=== PATIENT | female | born 1975 | race Two or more races ===

== ENCOUNTER 2017-04-09 14:02 | Day surgery (SDC) | payer SELFPAY ==
[~2017-04-09 14:02] MED LIST: Glycopyrrolate 0.2 MG/ML 5 ML SYRINGE ONE; Ketorolac Tromethamine 30 MG/ML VIAL ONE; Lidocaine 1% PF 5 ML VIAL ONE; Ondansetron HCl/PF 4 MG/2 ML Vial ONE; Propofol 200 MG/20 ML VIAL ONE
[2017-04-09 14:57] LABS: BHCG - Serum Negative (NEGATIVE); Pregs Control Background? CLEAR/WHITE (CLR/WHITE); Pregs Control Bar Appear? YES (CONTROL BAR)
--- NOTE | 2017-04-09 15:02 | RAD ---
FRONTAL VIEW CHEST: Indication: Pre-operative assessment. FINDINGS: Lungs are clear. There is slight elevation of the right hemidiaphragm. Cardiac silhouette is within n ormal in size. Mild osseous degenerative change present. IMPRESSION: No focal consolidation. POS: STEVO
--- NOTE | 2017-04-09 16:05 | HP ---
DATE OF ADMISSION: 04/09/2017 HISTORY OF PRESENT ILLNESS: Ms. Mathias is a 41-year-old woman, G0, P0 who presented to the emergency department in [facility] complaining of insidious onset epigastric to right upper quadra nt abdominal pain, which woke up this morning. She had a dinner last night, consisting of fried chic ernesto. Pain started approximately 3 hours later rated at a 7/10, which has progressed to 10/10 by this morning. She presented to emergency department complaining of some nausea, but no emesis. The jett ent denies any fevers or chills. She reports similar pain approximately 1 week ago, which was not re lated to meals. Following her workup in [place], she was transferred to [facility] in [place] for the care of biliary disease. At the time of my evaluation, the patient is awake and alert. Her pain is controlled with intravenous analgesics. PAST MEDICAL HISTORY: She denies any previous medical problems. PAST SURGICAL HISTORY: The patient denies any previous surgeries. SOCIAL HISTORY: She is and lives at home with her . She is currently unemployed. Muna jarvis admits to smoking 2 or 3 cigarettes every other day, has never smoked half a pack of cigarettes per day. She also endorses occasional use of ethanol in moderate amounts. She denies any illicit drug abuse. FAMILY HISTORY: The patient denies any family history of diabetes mellitus, hypertension, heart dise ase or cancer. PREHOSPITALIZATION MEDICATIONS: None. ALLERGIES: To PENICILLIN. REVIEW OF SYSTEMS: Ten point review of systems essentially unremarkable except for as stated in past medical history and chief complaint. PHYSICAL EXAMINATION: GENERAL: This reveals a 41-year-old normally developed woman who is otherwise coherent and interacti ve and appears at stated age. The patient is alert and oriented x3, appears to be in no significant acute distress at the time of my evaluation. VITAL SIGNS: Includes blood pressure 137/90, pulse 61, respiratory rate 16, temperature is 98.3 degr ees Fahrenheit, oxygen saturation 99% on room air. HEENT: Reveals normocephalic and atraumatic. Pupils are equal, round, and reactive to light and acc ommodation. Extraocular muscles are intact bilaterally. She has no sclerae icterus present. HEART: Reveals regular rate and rhythm, no murmurs or gallops auscultated. LUNGS: Clear to auscultation bilaterally. ABDOMEN: Soft and nondistended. She has moderate right upper quadrant tenderness to palpation with positive Parada's sign. Liver and spleen otherwise nonpalpable below costal margin. EXTREMITIES: Reveals 2+ radial and pedal pulses bilaterally. No ankle edema is present. NEUROLOGIC: Reveals no focal deficits present. LABORATORY STUDIES: Today includes metabolic profile from [place] includes sodium 139, potassium is 3.6, chloride is 109, bicarbonate 20, BUN 7, creatinine 0.82, glucose 112. Total bilirubin 0.4, AST and ALT are normal at 15 and 26 respectively. Alkaline phosphatase 137 units per liter. Serum lipa se is normal at 32. Serum test is negative. CBC with 19,000 white blood cells, hemoglobin and hematocrit are 14.3 and 41.1 respectively. Platelet count is 543,000. IMAGING: I have personally reviewed the abdominal CT scan from [place], which reveals a dilated gal lbladder with multiple intraluminal gallstones. There is no pericholecystic fluid present. Abdomina l ultrasound has been ordered to better evaluate the gallbladder disease and also define the size of the common bile duct. That study is pending at time of this dictation. IMPRESSION: Acute cholecystitis with cholelithiasis. PLAN: Laparoscopic cholecystectomy. Above findings and plan have been discussed with the patient in the presence of her and her elderly mother at bedside. I have advised the patient of the ri sks and benefits of the proposed surgery. Risks include, but not limited to bleeding, infection, inj ury to bile duct or surrounding structures. The patient indicates understanding of the information jas robb. I have answered her questions. The patient has given consent for this admission and surgical intervention.
--- NOTE | 2017-04-09 16:18 | ULT ---
EXAM: GALLBLADDER ULTRASOUND 04/09/17 HISTORY: Abdominal pain. COMPARISON: None. TECHNIQUE: Utilizing a multihertz transducer, sonographic imaging of the right upper quadrant is performed in th e longitudinal and transverse plane. FINDINGS: Pancreas is obscured by bowel gas. Increased echogenicity of the liver which may be due to hepatic steatosis or hepatocellular disease. Subsequent limited evaluation for hepatic masses and intrahepatic biliary dilatation. Right hepatic l obe measures 16.6 cm. Main portal vein is patent. Appropriate directional flow. Common duct diameter is 1.2 cm. In the lumen of the gallbladder there are multiple echogenic foci with posterior acoustic shadowing c ompatible with gallstones. Gallbladder wall thickness is at the upper limits of normal. There is no p ericholecystic fluid. Negative Parada's sign. Right kidney has a normal cortical echotexture. No hydronephrosis. Right kidney measures 10.5 x 4.2 x 5.4 cm. IMPRESSION: 1. Sonographic evidence of cholelithiasis without definite sonographic evidence of cholecystitis . 2. Markedly prominent common bile duct. If there is concern for choledocholithiasis, consider MR CP or ERCP. POS: CECILIA
--- NOTE | 2017-04-10 00:39 | OP ---
DATE OF OPERATION: 04/09/2017 PREOPERATIVE DIAGNOSES: Acute cholecystitis with cholelithiasis. POSTOPERATIVE DIAGNOSES: Acute cholecystitis with cholelithiasis. PROCEDURE PERFORMED: Laparoscopic cholecystectomy. SURGEON: Jorge Burgos D.O. ANESTHESIA: General endotracheal. ESTIMATED BLOOD LOSS: 10 mL FLUIDS GIVEN: 1700 mL crystalloids. SPONGE AND INSTRUMENT COUNT: Certified as correct x2. COMPLICATIONS: None apparent at the time of operation. INDICATIONS FOR PROCEDURE: This is a 41-year-old woman presented with recurrent epigastric to right upper quadrant abdominal pain. Clinical and radiographic examination was consistent with a cute cholecystitis with cholelithiasis for which patient was brought to the operating room for cholec ystectomy. Findings are consistent with gallbladder in the usual anatomic location partially encased by omental adhesions. DESCRIPTION OF PROCEDURE: Informed consent obtained from the patient who was brought to the operatin g room and placed in supine position. Following general anesthesia, abdomen was sterilely prepped an d draped in usual fashion. Skin below the umbilicus was infiltrated with 0.25% Marcaine with epineph rine. A small curvilinear infraumbilical incision is made using an 11 scalpel. Umbilical stalk was grasped with Barrett and elevated. Veress needle inserted through this incision and placed in the per itoneal cavity through which the abdomen was insufflated with 2.5 liters of CO2 gas. Following abdom inal insufflation, Veress needle was removed and a 5 mm trocar inserted into the peritoneal cavity us ing a Visiport under laparoscopy. Laparoscopy confirmed proper placement of the port, no injuries to underlying structures. Additional laparoscopy reveals gallbladder in the usual anatomic location pa rtially encased by omental adhesions. Under direct laparoscopy, a 12 mm epigastric and two 5 mm righ t lateral subcostal ports were placed after the overlying skin was infiltrated with 0.25% Marcaine wi th epinephrine and appropriate incisions made. The patient is placed in the reverse Trendelenburg po sition, rotated to her left. I introduced the [place] dissector with cautery, using this to take do wn omental adhesions. Prestige grasper was introduced through the right lateral subcostal port grasp ing the fundus of the gallbladder, which was elevated cephalad. A second grasper was introduced thro ugh the right medial subcostal port grasping the Sykes's pouch, which was retracted laterally. The cystic duct was then dissected free from surrounding structures at the triangle of Calot. The duct is divided between clips applying two clips proximally and one clip at the junction of the cystic peewee t and gallbladder. The cystic artery was dissected free from surrounding structures and divided betw een clips in a similar fashion. Gallbladder surface removed from the liver bed with cautery with goo d hemostasis noted. Gallbladder is delivered of the abdominal cavity using an EndoCatch. Operative site was again inspected for good hemostasis. All clips remain in place, no bile stains noted. Find ing no other pathology, laparoscopy was terminated. Fascia of the epigastric port was closed using 0 Vicryl suture and Endo closure device under laparoscopy. Abdomen was desufflated. All ports and in struments are removed and accounted for. Skin incisions closed using 4-0 Monocryl suture in subcutic ular fashion. Dermabond was applied over the incisions after closure. The patient tolerated the ope ration without any apparent complication and was returned to recovery room in satisfactory condition.
--- NOTE | 2017-04-11 13:06 | EKG ---
Test Reason : Blood Pressure : / mmHG Vent. Rate : 065 BPM Atrial Rate : 065 BPM P-R Int : 134 ms QRS Dur : 082 ms QT Int : 408 ms P-R-T Axes : 033 019 040 degrees QTc Int : 424 ms Normal sinus rhythm Normal ECG Confirmed by WILMER RAMIREZ, JULISSA ([id number]), online editor JAZ TELLEZ ([id number]) on 04/11/2017 1:05:35 PM Referred By: Confirmed By:JULISSA GUILLEN MD
== END 2017-04-09 21:35 | disposition home or self-care (01) ==
LOC: ERS 14:02 → SDC 15:45 → ERS 15:45 → SDC 21:35
PROVIDERS: ATTEND Surgery
PROC: 0FT44ZZ Resection of Gallbladder, Percutaneous Endoscopic Approach (ICD-10-PCS; principal; 2017-04-09)
DX: K80.10 Calculus of gallbladder with chronic cholecystitis without obstruction (principal); F17.210 Nicotine dependence, cigarettes, uncomplicated; Z88.0 Allergy status to penicillin
CPT/HCPCS: 36415; 71045; 76705; 83690; 84703; 88304; 93005; 96360; J1885; J2001; J2405; J2704